=== PATIENT | female | born 1955 | race Caucasian/White ===

== ENCOUNTER → 2016-10-16 | Outpatient (CLI) | payer OTHER | END | disposition home or self-care (01) | LOC: CVU 08:37 | PROVIDERS: ATTEND Internal Medicine Cardiovascular Disease | DX: I34.0 Nonrheumatic mitral (valve) insufficiency (principal); I34.1 Nonrheumatic mitral (valve) prolapse; I77.819 Aortic ectasia, unspecified site; I48.91 Unspecified atrial fibrillation; Z79.899 Other long term (current) drug therapy | CPT/HCPCS: 93306 ==